=== PATIENT | male | born 1995 | race Caucasian/White ===

== ENCOUNTER 2016-06-17 23:39 | Emergency (ER) | payer OTHER ==
[~2016-06-17] VITALS: Ht 182.9 cm; Wt 81.3 kg
[2016-06-17 23:48] VITALS: BP 131/70; PULSE 63; TEMP 37.1; O2SAT 100; Ht 182.9 cm; Wt 81.3 kg
[2016-06-18] MEDS ORDERED: CLR10 PO (00:23)
--- NOTE | 2016-06-18 00:32 | EMERGENCY ROOM VISIT NOTE ---
History Report prepared by Alysonibloc: Marek Tam Under the Supervision of: Dr. Wendy Milton D.O. First contact with patient: 00:00 Chief Complaint: FACIAL PAIN/INJURY Stated Complaint: SWOLLEN GLAND ON JAW History of Present Illness The patient is a 21 year old male who presents to the Emergency Room with complaints of waxing & waning pain of the right jaw that started this morning. The pain radiates to his right ear and is currently rated 5/10 in severity. The patient also notes swelling in the same area and can not completely open his mouth secondary to pain. 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 The patient's fraternity brother is not showing symptoms but was in the [employer] house where the patient lives. The patient denies testicular pain, abdominal pain, leg cramping or swelling or rashes. The patient denies any major health problems other than allergies. Source of History: patient Onset: this morning Position: jaw (right side) Symptom Intensity: 5/10 Timing: waxes/wanes Modifying Factors (Worsening): other (opening mouth) Associated Symptoms: No abdominal pain, No rash Review of Systems See HPI for pertinent positives & negatives. A total of 10 systems reviewed and were otherwise negative. Past Medical & Surgical Medical Problems: (1) Seasonal allergies Surgical Problems: (1) Hx of tonsillectomy Family History No pertinent family history Social History Smoking Status: Never Smoker Housing Status: lives with friends Occupation Status: [employer] student Current/Historical Medications Scheduled Loratadine (Claritin), 10 MG PO DAILY Allergies Coded Allergies: No Known Allergies (Unverified , 06/18/16) Physical Exam Vital Signs Date Time Temp Pulse Resp B/P Pulse Ox O2 Delivery O2 Flow Rate FiO2 06/17/16 23:48 37.1 63 18 131/70 100 Room Air Physical Exam HEENT: Head - normocephalic and atraumatic Pupils are equal, round, and reactive to light. Extraocular eye muscles are intact, and sclera are anicteric. Nose - moist nasal mucosa without discharge. Mouth - moist buccal mucosa. Oropharynx is nonerythematous and there is no tonsillar exudate or edema noted. Enlargement of the right parotid gland with pain to palpation. Ears: Normal tympanic membranes Neck: Supple; no nuchal rigidity. Slight anterior cervical lymphadenopathy. Heart: Regular rate and rhythm. There is a normal S1 and S2 with no murmurs, clicks, or gallops appreciated. Lungs: Clear to auscultation bilaterally with no wheezes, rales, or rhonchi. Abdomen: Soft, completely nontender, nondistended, with good bowel sounds. There are no palpable pulsatile masses or hepatosplenomegaly. There is no guarding, rigidity, or rebound noted. Extremities: No evidence of cyanosis, clubbing, or edema. There are easily palpable peripheral pulses. Skin: warm and dry with good turgor and no rashes. Medical Decision & Procedures Laboratory Results Test 06/18/16 00:42 Laboratory results per my review. ED Course 0008: Past medical records reviewed. The patient was evaluated in room C1b. A complete history and physical exam was performed. Laboratory studies were drawn -IgG and IgM for mumps. 0102: The patient left before being given his written discharge instructions, however I did explain the verbal instructions to him and her verbalized understanding. Medical Decision The patient is a 21 year old male who presents to the ED with right jaw pain. Differential diagnosis includes parotitis, mumps, otitis media, otitis externa, cervical lymphadenopathy. The patient has right parotid gland enlargement consistent with parotitis. We are currently experience an epidemic of mumps at [facility]. I am concerned that this is a positive case. The blood was sent to reference lab. I have asked the patient to quarantine himself for the next couple of days until those results are completed. The patient denies any testicular involvement. Healing complains of pain in the right parotid gland. Impression Primary Impression: Parotid gland enlargement Scribe Attestation The scribe's documentation has been prepared under my direction and personally reviewed by me in its entirety. I confirm that the note above accurately reflects all work, treatment, procedures, and medical decision making performed by me. Departure Information Dispostion Home / Self-Care Referrals No Doctor, Assigned (PCP) Forms HOME CARE DOCUMENTATION FORM, IMPORTANT VISIT INFORMATION Patient Instructions ED Mumps, Mumps Antibody, My [facility] Additional Instructions Rest. Take a soft diet and a liquid diet. Ibuprofen - 600mg every 6 hours with food for pain. You must quarantine yourself until you get your test results. Call back for results on or you may be contacted by the Department of Health.
[2016-06-21 18:37] LABS: MUMPS IgG VALUE 3.07; MUMPS VIRUS ANTIBODY IGM <1:20
== END 2016-06-18 01:09 | disposition home or self-care (01) ==
LOC: C.EDB 23:41 → C.EDC 06-18 01:09
DX: K11.1 Hypertrophy of salivary gland (principal)